=== PATIENT | male | born 1935 | race African-American/Black ===

== ENCOUNTER → 2017-01-02 | Outpatient (CLI) | payer OTHER, BC ==
[~2017-01-02] VITALS: Ht 167.6 cm; Wt 82.1 kg
[~2017-01-02] MED LIST: AMBIEN 5 MG TABL5 M1 PO; ANUSOL-HC25 MG PO; BENICAR HCT 401 EAC1 PO; BENICAR20 MG PO; CENTRUM MULTIV1 EACH PO; CENTRUM SILVER1 EAC5 PO; COQ-10100 MG PO; COQ-1030 MG PO; COUMADIN 5 MG TA5 M1 PO; CRESTOR40 MG PO; CYCLOBENZAPRINE5 MG PO; DOXYCYCLINE HYC50 MG PO; FLONASE 0.05%50 MCG NASAL; GLUCOSAMINE &1 EAC1 PO; GLYCOLAX POWDER17 G1 PO; K-TAB10 MEQ PO; KLOR-CON 10 ER10 MEQ PO; LASIX 20 MG TAB20 MG PO; LEVOTHYROXIN0.025 MG PO; LUMIGAN5 ML OPHTHALMIC; METAMUCIL PAC1 UDPK1 PO; METAMUCIL1 EAC1 PO; MIRALAX17 GM PO; MULTI VITAMIN1 EACH PO; NORCO 5-325 TA1 EACH PO; OMEGA-3 KRILL1 EACH PO; OMEGA-31000 M1 PO; OMEPRAZOLE40 MG PO; PHILLIPS' COLO1 EACH PO; PLAVIX 75 MG TA75 M1 PO; POLY-IRON150 MG PO; PROAIR HFA8.5 GM INH; TYLENOL325 MG PO; ULTRAM 50MG TAB50 MG PO; VITAMIN B-12100 MC1 PO; VITAMIN B-121000 MC1 PO; VITAMIN D 5050000 I1 PO; VITAMIN D-32000 UNIT PO; VITAMIN D1000 UNI1 PO; VITAMIN D32000 UNI1 PO; XARELTO10 MG PO; ZADITOR5 M1 OPHTHALMIC; ZETIA10 MG PO; ZOMETA4 MG/5 ML PO; [UNRECOGNIZED DRUG - OTHER] PO
[2017-01-02 08:52] VITALS: BP 137/78
[2017-01-02 09:28] LABS: HEMATOCRIT 30.8 % (42.0-52.0); HEMOGLOBIN 10.3 gm/dL (14.0-18.0); MCH 29.5 pg (26.0-34.0); MCHC 33.4 g/dL (28.0-37.0); MCV 88.3 fL (80.0-100.0); RBC 3.48 mil/uL (4.50-6.00); RDW 14.4 % (10.5-14.5); WBC 4.2 thou/uL (4.0-11.0)
[2017-01-02 09:36] LABS: CALCIUM 9.8 mg/dL (8.5-10.1); POTASSIUM 4.2 mmol/L (3.5-5.1)
[2017-01-02 09:41] LABS: INR 1.2; PROTIME 12.2 Seconds (9.3-11.4)
== END ==
LOC: SPEC 08:29
PROVIDERS: Radiology Vascular & Interventional Radiology
DX: Z45.89 Encounter for adjustment and management of other implanted devices (principal); I10 Essential (primary) hypertension; E78.5 Hyperlipidemia, unspecified; K21.9 Gastro-esophageal reflux disease without esophagitis; E03.9 Hypothyroidism, unspecified; I25.10 Atherosclerotic heart disease of native coronary artery without angina pectoris; Z86.718 Personal history of other venous thrombosis and embolism; Z90.79 Acquired absence of other genital organ(s); Z87.891 Personal history of nicotine dependence; Z80.9 Family history of malignant neoplasm, unspecified